=== PATIENT | female | born 1985 | race Caucasian/White ===

== ENCOUNTER 2018-07-28 14:05 | Outpatient (CLI) | END 2018-07-28 15:45 | disposition home or self-care (01) ==

== ENCOUNTER 2018-10-15 08:33 | Outpatient (CLI) | payer MEDICAID ==
[~2018-10-15] VITALS: Ht 165.1 cm; Wt 109.9 kg
[~2018-10-15 08:33] MED LIST: FER325 PO; NITR-58 PO; PREN-93 PO
[2018-10-15 08:41] VITALS: Ht 165.1 cm; Wt 109.9 kg
--- NOTE | 2018-10-15 16:55 | PN ---
Triage Information Date/Time October 15, 2018 Reason for visit: Patient here for rule out macrosomia Weeks of Gestation 38 weeks and 5 days /Para 3 para 2 Diabetes: none Hypertention: none Additional information 33-year-old with IUP at 38 weeks and 5 days was sent by her primary OB to triage for ultrasound due to suspected macrosomia as well as testing. Patient denies any history of gestational diabetes with pre-gestational diabetes. Denies any leaking of fluid, vaginal bleeding decreased movement or any other complaints. Objective Vitals are stable Heart Rate: 130's Heart Rate Comments Category 1 and reassuring Contractions: None Exam General appearance: Alert and oriented x4 does not appear to be in any acute distress. Obese Abdomen: Soft, gravid, fundal height consider gestational age NST: Category 1 EFW: 7 7.6 percentile BPP: 8/8 MARIANNA: 9.6 Results/Medications Imaging Results PROCEDURE: US OB biophysical profile. CLINICAL INDICATION: decreased movements, TECHNIQUE: Multiple sonographic images of the pelvis were obtained. The images were reviewed on a PACS workstation. COMPARISON: No prior studies are available for comparison. FINDINGS: There is a single live intrauterine gestation. Cardiac activity is present with 126 beats per minute. There is a vertex presentation. The placenta is anterior. There is no evidence of placental abruption. There is a normal amount of amniotic fluid with an MARIANNA = 9.6 cm. Biophysical profile: movement 2/2 tone 2/2. breathing 2/2 MARIANNA 2/2 Total 8 RPTAT: AA . IMPRESSION: Normal biophysical profile. . Disposition: Discharge Assessment/Plan IUP at 38 weeks and 5 days No evidence of macrosomia Doing well testing reassuring Labor precaution kick count and follow-up with primary OB office within 48 hours after discharge from the hospital discussed with the patient Patient verbalized understanding. All questions were answered to patient's best satisfaction CHACORTA RODRIGUEZ MD Oct 15, 2018 16:55
--- NOTE | 2018-10-15 18:02 | TRIAGE ---
OB Triage Datetime Report Generated by CPN: 10/15/2018 18:02 Datetime: 10/15/2018 10:00 Stage of : OB Triage Maternal Assessment Level of Consciousness: Fully Conscious DTR's/Clonus: DTRs 1+ Headache: Denies Breath Sounds, Left: Clear and Equal Breath Sounds, Right: Clear and Equal Nausea/Vomiting: Denies RUQ Epigastric Pain: Denies Monitor Mode: External Resting Tone [place]: Relaxed Heart Rate FHR Baseline Rate: 125 Monitor Mode: External US Variability: Moderate 6-25 bpm Accelerations: 15X15 Decelerations: None Category: Category I Pain Assessment Pain Scale: 0 Pain Presence: None/Denies Pain Type: N/A Pain Goal: 3 Vaginal Exam Membrane Status: Intact Datetime: 10/15/2018 09:04 Stage of : OB Triage Maternal Assessment Level of Consciousness: Fully Conscious DTR's/Clonus: DTRs 1+ Headache: Denies Blurred Vision: No Respiratory Effort: Unlabored Breath Sounds, Left: Clear and Equal Breath Sounds, Right: Clear and Equal Nausea/Vomiting: Denies RUQ Epigastric Pain: Denies Facial Edema: None Labor Evaluation Frequency: X1 Monitor Mode: External Duration (sec)2399: 60 Quality: Mild Pattern: Normal: <= 5 Contractions in 10 Minutes Resting Tone [place]: Relaxed Heart Rate FHR Baseline Rate: 125 Monitor Mode: External US Variability: Moderate 6-25 bpm Accelerations: 15X15 Decelerations: None Category: Category I Pain Assessment Pain Scale: 0 Pain Presence: None/Denies Pain Type: N/A Pain Goal: 3 Vaginal Exam Membrane Status: Intact Datetime: 10/15/2018 08:35 Assessment Type: Triage Maternal Assessment Level of Consciousness: Fully Conscious DTR's/Clonus: DTRs 2+; No Clonus Headache: Denies Blurred Vision: No Respiratory Effort: Unlabored; Regular Rhythm; Equal Expansion Breath Sounds, Left: Clear and Equal Breath Sounds, Right: Clear and Equal Nausea/Vomiting: Denies RUQ Epigastric Pain: Denies Lower Extremities Edema: None Degree: None Upper Extremities Edema: None Degree: None Facial Edema: None Fall Risk Assessment History of Falling: (0) No Secondary Diagnosis: (0) No Ambulatory Aid: (0) Bedrest/Nurse Assist IV Therapy: (0) No Gait: (0) Normal/Bedrest/Immobile Mental Status: (0) Oriented to Own Ability Fall Score: 0 Fall Risk Score Definition: No Risk: No action required Datetime: 10/15/2018 08:24 Time of Arrival: 10/15/2018 08:24 EGA: 38.5 Arrived By: Ambulatory Arrived From: Office Chief Complaint: PT CAME IN FROM [facility] OFFICE TO R/O MACRO Movement: Present Contractions: Denies/Absent Rupture of Membranes: Denies Vaginal Discharge: Denies Recent Sexual Intercouse: Denies Abdominal Trauma: Not Applicable Patient Complaints: Other Additional Patient Complaints: NONE Time Provider Notified: 10/15/2018 08:42 Provider Notified: HADADIAN Initial Plan: NST, BPP AND EFW Datetime: 07/28/2018 14:18 Fall Score: 0 Fall Risk Score Definition: No Risk: No action required Datetime: 07/28/2018 14:17 EGA: 27.3
== END 2018-10-15 10:15 | disposition home or self-care (01) ==
LOC: OBT 08:33 → L-D 08:34 → OBT 10:15
PROVIDERS: ATTEND Obstetrics & Gynecology
DX: O36.63X0 Maternal care for excessive fetal growth, third trimester, not applicable or unspecified (principal); Z3A.38 38 weeks gestation of pregnancy
CPT/HCPCS: 76815; 76818; Z7500; G0463

== ENCOUNTER 2018-10-25 08:46 | Outpatient (CLI) | payer MEDICAID ==
[~2018-10-25] VITALS: Ht 165.1 cm; Wt 108.8 kg
[2018-10-25 09:04] VITALS: Ht 165.1 cm; Wt 108.8 kg
--- NOTE | 2018-10-25 12:16 | PN ---
Triage Information Date/Time Reason for visit: Antepartum testing Weeks of Gestation 40 weeks and 1 day /Para 003 Diabetes: none Hypertention: none Objective Heart Rate: 140's Contractions: None Results/Medications Imaging Results FINDINGS: There is a single viable intrauterine gestation. There is a vertex presentation. Cardiac activity is present at 136 beats per minute. The placenta is anterior grade II. The results of the biophysical profile are as follows: breathing movement = 2/2 Gross body movement = 2/2 tone = 2/2 Qualitative amniotic fluid volume = 2/2 Amniotic fluid index equals 8.5 cm. This yields a biophysical profile score of 8/8. IMPRESSION: Biophysical profile score is 8/8. Disposition: Discharge Assessment/Plan 33 years old G with single intrauterine at 40 weeks and 1 day present for antepartum testing. - FHR: No sign of metabolic acidosis- Category I - Contractions: None - Ultrasound performed as noted above, normal MARIANNA biophysical profile 8 out of 8 - SVE performed/closed/thick/high/cephalic/intact membrane. Repeat exam in 2 hours with no cervical changes. - Symptoms and sign of labor, preeclampsia, kick count discussed with patient, she voiced understanding. All of her questions answered. - Patient was discharged home in stable condition with the appropriate discharge instructions provided, antepartum testing is normal and the cervical exam is unfavorable I would like patient to have close follow-up with her primary physician or outpatient clinic in 1-2 days. She has been scheduled for induction of labor on 04/30/2019 SHERRILL OBRIEN Oct 25, 2018 12:16
== END 2018-10-25 11:40 | disposition home or self-care (01) ==
LOC: OBT 08:46 → L-D 08:47 → OBT 11:40
PROVIDERS: ATTEND Obstetrics & Gynecology
DX: O48.0 Post-term pregnancy (principal); Z3A.40 40 weeks gestation of pregnancy
CPT/HCPCS: 76818; Z7500; G0463

== ENCOUNTER 2018-10-25 19:26 | Inpatient (IN) | payer MEDICAID ==
[~2018-10-25] VITALS: Ht 165.1 cm; Wt 109.8 kg
[2018-10-25 19:33] VITALS: BP 129/76; PULSE 78; RESP 16; Ht 165.1 cm; Wt 109.8 kg
[2018-10-25] MEDS ORDERED: LACTATED RINGER'S 1,000 ML IV SCH (21:15)
[2018-10-25] MEDS ORDERED: LACTATED RINGER'S 1,000 ML IV PRN (21:15)
[2018-10-25] MEDS ORDERED: CARBOPROST 250 MCG INJ IM PRN (21:30)
[2018-10-25] MEDS ORDERED: OXYTOCIN 30 UNITS/LR 500 ML IV SCH ×2 (21:30)
[2018-10-25] MEDS ORDERED: OXYTOCIN 30 UNITS/LR 500 ML IV PRN (21:30)
[2018-10-25] MEDS ORDERED: METHYLERGONOVINE 0.2 MG INJ IM PRN (21:30)
[2018-10-25] MEDS ORDERED: BUTORPHANOL 2 MG INJ IV PRN (21:30)
[2018-10-25] MEDS ORDERED: IBUPROFEN 600 MG TAB PO PRN (21:30)
[2018-10-25] MEDS ORDERED: LIDOCAINE 1% (MPF) 30 ML INJ INJ PRN (21:30)
[2018-10-25] MEDS ORDERED: MISOPROSTOL 200 MCG TAB PR PRN (21:30)
[2018-10-25] MEDS ORDERED: BUTORPHANOL 1 MG INJ IV PRN (21:30)
--- NOTE | 2018-10-25 22:06 | TRIAGE ---
OB Triage Datetime Report Generated by CPN: 10/25/2018 22:05 Datetime: 10/25/2018 21:44 Stage of : Labor Assessment Type: Admission Assessment Vaginal Bleeding: None Maternal Assessment Level of Consciousness: Fully Conscious DTR's/Clonus: DTRs 2+; No Clonus Headache: Denies Blurred Vision: No Respiratory Effort: Unlabored; Regular Rhythm; Equal Expansion Breath Sounds, Left: Clear and Equal Breath Sounds, Right: Clear and Equal Nausea/Vomiting: Denies RUQ Epigastric Pain: Denies Lower Extremities Edema: None Degree: None Upper Extremities Edema: None Degree: None Facial Edema: None Fall Risk Assessment History of Falling: (0) No Secondary Diagnosis: (0) No Ambulatory Aid: (0) Bedrest/Nurse Assist IV Therapy: (20) Yes Gait: (0) Normal/Bedrest/Immobile Mental Status: (0) Oriented to Own Ability Fall Score: 20 Fall Risk Score Definition: No Risk: No action required Labor Evaluation Frequency: 2-3.5 Duration (sec)2399: 60-90 Quality: Moderate Pattern: Normal: <= 5 Contractions in 10 Minutes Resting Tone [place]: Relaxed Heart Rate FHR Baseline Rate: 135 Variability: Moderate 6-25 bpm Accelerations: 15X15 Decelerations: None Category: Category I Pain Assessment Pain Scale: 5 Pain Presence: Intermittent Pain Type: Contraction Pain Location: Abdomen Pain Goal: 5 Membrane Status: Intact Datetime: 10/25/2018 21:35 Stage of : Labor Comments: Monitor on, pt in FBC4 Datetime: 10/25/2018 21:20 Comments: monitors off, pt to FBC4 via wheelchair accompanied by RN Datetime: 10/25/2018 21:11 Vaginal Exam Dilatation (cms): 6.0 Effacement (%): 70 Station: -3 Exam By: Cervix, Position: Posterior Datetime: 10/25/2018 21:10 Labor Evaluation Frequency: 4-6 Monitor Mode: External Duration (sec)2399: 50-70 Quality: Mild Pattern: Normal: <= 5 Contractions in 10 Minutes Resting Tone [place]: Relaxed Interventions: Side to Side; Provider Notified Heart Rate FHR Baseline Rate: 150 Monitor Mode: External US Variability: Moderate 6-25 bpm Accelerations: 15X15 Decelerations: Late; Variable Category: Category II Pain Assessment Pain Scale: 5 Pain Presence: Intermittent Pain Type: Contraction Pain Location: Abdomen Pain Relief Measures: Comfort Measures Datetime: 10/25/2018 20:56 Monitor Mode: External US Datetime: 10/25/2018 20:55 Monitor Mode: External US Comments: Monitor loss of contact d/t maternal BMI, positioning, _ lots of movement Datetime: 10/25/2018 20:48 Monitor Mode: External Monitor Mode: External US Comments: monitor loss of contact d/t pt repositioning Datetime: 10/25/2018 20:29 Labor Evaluation Frequency: 5-11 Monitor Mode: External Duration (sec)2399: 50-90 Quality: Mild Pattern: Normal: <= 5 Contractions in 10 Minutes Resting Tone [place]: Relaxed Contraction Comments: some uterine irritability noted Heart Rate FHR Baseline Rate: 140 Monitor Mode: External US Variability: Moderate 6-25 bpm Accelerations: 15X15 Decelerations: None Category: Category I Pain Assessment Pain Scale: 4 Pain Presence: Intermittent Pain Type: Contraction Pain Location: Abdomen Pain Relief Measures: Comfort Measures Datetime: 10/25/2018 20:22 Monitor Mode: External US Datetime: 10/25/2018 20:08 Time of Arrival: 10/25/2018 19:20 EGA: 40.1 Arrived By: Ambulatory Arrived From: Home Chief Complaint: UC's/spotting since 1500 Movement: Present Contractions: Occasional Time Contractions Began: 10/25/2018 15:00 Rupture of Membranes: Denies Vaginal Bleeding: Normal Show Vaginal Discharge: Denies Recent Sexual Intercouse: Denies Abdominal Trauma: Not Applicable Patient Complaints: Contractions; Other Time Provider Notified: 10/25/2018 20:16 Provider Notified: Initial Plan: VS, EFM, SVE Datetime: 10/25/2018 19:54 Vaginal Exam Dilatation (cms): 0.0 Effacement (%): 30 Station: -3 Exam By: BLANCA SIMEON Membrane Status: Intact Vaginal Bleeding: Normal Show Cervix, Consistency: Moderate Cervix, Position: Posterior Datetime: 10/25/2018 19:33 Maternal Assessment Level of Consciousness: Fully Conscious DTR's/Clonus: DTRs 2+; No Clonus Headache: Denies Blurred Vision: No Respiratory Effort: Unlabored; Regular Rhythm; Equal Expansion Breath Sounds, Left: Clear and Equal Breath Sounds, Right: Clear and Equal Nausea/Vomiting: Denies RUQ Epigastric Pain: Denies Lower Extremities Edema: None Degree: None Upper Extremities Edema: None Degree: None Facial Edema: None Temperature Route: Oral Fall Risk Assessment History of Falling: (0) No Secondary Diagnosis: (0) No Ambulatory Aid: (0) Bedrest/Nurse Assist IV Therapy: (0) No Gait: (0) Normal/Bedrest/Immobile Mental Status: (0) Oriented to Own Ability Fall Score: 0 Fall Risk Score Definition: No Risk: No action required Pain Assessment Pain Scale: 3 Pain Presence: Intermittent Pain Type: Contraction Pain Location: Abdomen Pain Relief Measures: Comfort Measures Datetime: 10/25/2018 19:30 Monitor Mode: External Monitor Mode: External US Comments: monitor applied, FHT audible at 145bpm Datetime: 10/25/2018 19:27 Stage of : OB Triage Datetime: 10/25/2018 09:56 Maternal Assessment Level of Consciousness: Fully Conscious DTR's/Clonus: DTRs 1+ Headache: Denies Blurred Vision: No Respiratory Effort: Unlabored Breath Sounds, Left: Clear and Equal Breath Sounds, Right: Clear and Equal Nausea/Vomiting: Denies RUQ Epigastric Pain: Denies Facial Edema: None Labor Evaluation Frequency: IRREGULAR Monitor Mode: External Duration (sec)2399: 40-60 Quality: Mild Pattern: Normal: <= 5 Contractions in 10 Minutes Resting Tone [place]: Relaxed Heart Rate FHR Baseline Rate: 125 Monitor Mode: External US Variability: Moderate 6-25 bpm Accelerations: 15X15 Decelerations: None Category: Category I Pain Assessment Pain Scale: 0 Pain Presence: None/Denies Pain Type: N/A Pain Goal: 3 Membrane Status: Intact Datetime: 10/25/2018 09:00 Stage of : OB Triage Maternal Assessment Level of Consciousness: Fully Conscious DTR's/Clonus: DTRs 1+ Headache: Denies Breath Sounds, Left: Clear and Equal Breath Sounds, Right: Clear and Equal Nausea/Vomiting: Denies RUQ Epigastric Pain: Denies Labor Evaluation Frequency: IRREGULAR Monitor Mode: External Duration (sec)2399: 40-60 Quality: Mild Pattern: Normal: <= 5 Contractions in 10 Minutes Resting Tone [place]: Relaxed Heart Rate FHR Baseline Rate: 135 Monitor Mode: External US Variability: Moderate 6-25 bpm Accelerations: 15X15 Decelerations: None Category: Category I Pain Assessment Pain Scale: 0 Pain Presence: None/Denies Pain Type: N/A Pain Goal: 3 Membrane Status: Intact Datetime: 10/25/2018 08:52 Vaginal Exam Dilatation (cms): 0.0 Effacement (%): 0 Station: -3 Exam By: RRAMIJERICA,RN Vaginal Bleeding: None Cervix, Consistency: Soft Cervix, Position: Posterior Datetime: 10/25/2018 08:49 Assessment Type: Triage Maternal Assessment Level of Consciousness: Fully Conscious DTR's/Clonus: DTRs 2+; No Clonus Headache: Denies Blurred Vision: No Respiratory Effort: Unlabored; Regular Rhythm; Equal Expansion Breath Sounds, Left: Clear and Equal Breath Sounds, Right: Clear and Equal Nausea/Vomiting: Denies RUQ Epigastric Pain: Denies Lower Extremities Edema: None Degree: None Upper Extremities Edema: None Degree: None Facial Edema: None Fall Risk Assessment History of Falling: (0) No Secondary Diagnosis: (0) No Ambulatory Aid: (0) Bedrest/Nurse Assist IV Therapy: (0) No Gait: (0) Normal/Bedrest/Immobile Mental Status: (0) Oriented to Own Ability Fall Score: 0 Fall Risk Score Definition: No Risk: No action required Datetime: 10/25/2018 08:42 Time of Arrival: 10/25/2018 08:42 EGA: 40.1 Arrived By: Ambulatory Arrived From: Dr. Alston Chief Complaint: NST AND BPP FOR POSTDATES 40 08/24 Movement: Present Contractions: Denies/Absent Rupture of Membranes: Denies Vaginal Discharge: Denies Recent Sexual Intercouse: Denies Abdominal Trauma: Not Applicable Additional Patient Complaints: NONE Time Provider Notified: 10/25/2018 08:49 Provider Notified: HADADIAN Initial Plan: NST AND BPP Datetime: 10/15/2018 08:35 Fall Score: 0 Fall Risk Score Definition: No Risk: No action required Datetime: 10/15/2018 08:24 EGA: 38.5 Datetime: 07/28/2018 14:18 Fall Score: 0 Fall Risk Score Definition: No Risk: No action required Datetime: 07/28/2018 14:17 EGA: 27.3
--- NOTE | 2018-10-26 00:12 | LDN ---
Date/Time of Note Date/Time of Note DATE: 10/26/18 TIME: 00:10 Delivery Summary of a viable baby boy weighing 3880 grams or 8# 9 oz, 20" long, and with Apgars of 8/9. Weeks of Gestation 40w 1d Placenta Delivered: Spontaneously Meconium: Light Episiotomy: No Perineal laceration: 1 Laceration repair: Very small perineal laceration repaired with one stitch of 2-0 chromic for hemostasis. Anesthesia type: None Estimated blood loss: 200 Sponge & Needle done & correct: Yes All needle counts correct: Yes Any foreign bodies felt in the: No (vagina) Delivery Information Sex Infant Sex: male Apgars 1 Minute: 8 5 Minute: 9 Suctioning Nose & mouth suctioned at lucero: Yes Delee suction performed: No Umbilical Cord Umbilical cord with: 3 Vessels Cord presentations: no nuchal cord Cord Blood was obtained: Yes Mother & Baby Disposition Disposition Mom & Baby to Maternity; Good: Yes Baby to NICU: No NADEGE MAGAÑA MD Oct 26, 2018 00:12
--- NOTE | 2018-10-26 00:16 | HP ---
Date/Time of Note Date/Time of Note DATE: 10/26/18 TIME: 00:12 OB - History Hx of Present Free Text/Dictation 33 y.o. with an IUP at 40w 1d came in active labor with a cervical exam of 70%/6 cm/-3 station and was admitted for delivery. Chief Complaint: Labor Estimated Due Date: Oct 24, 2018 : 3 Para: 2 Care: Good Care Ultrasounds: Normal mid trimester US Obstetrical Complications: None Medical Complications: None Past Family/Social History * Past Medical, Surgical, Family and Obstetric Histories reviewed from chart. Blood Type: O+ Rubella: immune RPR/VDRL: Negative GBS Status: Negative HBsAG: Negative OB Admission Exam Vital Signs Vital Signs Vital Signs Date Temp Pulse Resp B/P (MAP) Pulse Ox O2 O2 Flow FiO2 Time Delivery Rate 10/25/18 98.1 78 16 129/76 Room Air 19:33 (93) Physical Exam HEENT: WNL Heart: Rhythm Normal Lungs: Clear Abdomen: WNL (obese) Extremities: Normal Reflexes: Normal Cervical Dilatation: 6cm Effacement: 75% Station: -3 Membranes: Intact Amniotic Fluid: Thin Meconium Heart Rate: 130's Accelerations: Accelerations Present Decelerations: Variable Decelerations (occasional) Varibility: Moderate Contractions on Admission: < 5 Minutes Apart Intensity: Moderate Last 72 hours Lab Results CBC & BMP 10/25/18 21:35 OB Assessment/Plan Reason for admission: active labor Plan: Expectant Management NADEGE MAGAÑA MD Oct 26, 2018 00:16
[2018-10-26] MEDS: LACTATED RINGER'S 1,000 ML IV* SCH ×3 (00:17→16:17)
--- NOTE | 2018-10-26 00:27 | DELSUM ---
Delivery Summary A-C Datetime Report Generated by CPN: 10/26/2018 00:27 DELIVERY PERSONNEL Fibreglass Laminator: Witt, Sirena MATERNAL INFORMATION Delivery Anesthesia: None Medications in Delivery: 30 UNIT PITOCIN Delivery QBL (ml): 300 Placenta Cultured: No Maternal Complications: None LABOR SUMMARY EDC: 10/24/2018 00:00 No. Babies in Womb: 1 Attempted: No Labor Anesthesia: None LABOR INFORMATION Reason for Induction: Not Applicable Onset of Labor: 10/25/2018 15:00 Complete Dilatation: 10/25/2018 23:50 Oxytocin: N/A Group B Beta Strep: Negative Antibiotics # of Doses: 0 Steroids Given: None Reason Steroids Not Administered: Not Applicable MEMBRANES Membranes Rupture Method: Artificial Rupture of Membranes: 10/25/2018 22:56 Length of Rupture (hr): 0.93 Amniotic Fluid Color: Light Meconium Amniotic Fluid Amount: Small STAGES OF LABOR Stage 1 hr: 8 Stage 1 min: 50 Stage 2 hr: 0 Stage 2 min: 2 Stage 3 hr: 0 Stage 3 min: 6 Total Time in Labor hr: 8 Total Time in Labor min: 58 VAGINAL DELIVERY Episiotomy: None Laceration Extension: First Degree Laceration Type: Perineal Laceration Repair: Yes Initial Vag Sponge Count: 10 Final Vag Sponge Count: 10 Initial Vag Sharps Count: 1 Final Vag Sharps Count: 2 Sponge Count Correct: Yes; Vaginal Sweep Performed Sharps Count Correct: Yes BABY A INFORMATION Infant Delivery Date/Time: 10/25/2018 23:52 Method of Delivery: Vaginal Method of Delivery: Vaginal Born in Route : No : N/A Forceps: N/A Vacuum Extraction: N/A Shoulder Dystocia : N/A SHOULDER DYSTOCIA BABY A Infant Delivery Date/Time: 10/25/2018 23:52 PRESENTATION/POSITION BABY A Presentation: Cephalic Cephalic Presentation: Vertex Breech Presentation: N/A PLACENTA INFORMATION BABY A Placenta Delivery Time : 10/25/2018 23:58 Placenta Method of Delivery: Spontaneous Placenta Status: Delivered SCORES BABY A Heart Rate 1 min: >100 bpm Resp Effort 1 min: Good Cry Reflex Irritability 1 min: Cough/Sneeze/Pulls Away Muscle Tone 1 min: Active Motion Color 1 min: Blue/Pale Resuscitation Effort 1 min: Tactile Stimulation SCORE 1 MIN: 8 Heart Rate 5 min: >100 bpm Resp Effort 5 min: Good Cry Reflex Irritability 5 min: Cough/Sneeze/Pulls Away Muscle Tone 5 min: Active Motion Color 5 min: Body [place], Extremit Blue Resuscitation Effort 5 min: Tactile Stimulation SCORE 5 MIN: 9 INFANT INFORMATION BABY A Gestational Age at Delivery: 40.1 Gestational Status: Full Term- 39- 40.6 Weeks Infant Outcome : Liveborn Condition : Stable Infant Sex: Male Sex: Male IDENTIFICATION/MEDS BABY A ID Band Number: [id number] ID Band Location: Right Leg; Left Arm Sensor Applied: Yes Sensor Number: [id number] Sensor Location : Cord Clamp Vitamin K Given : Not Given Erythromycin Given: Not Given WEIGHT/LENGTH BABY A Infant Birthweight (gm): 3880 Weight (lb): 8 Weight (oz): 9 Length (in): 20.00 Length (cm): 50.80 CORD INFORMATION BABY A No. Cord Vessels: 3 Nuchal Cord : N/A Cord Blood Taken: Yes Banking/Donate Info: none Suction: Mouth; Nose ASSESSMENT BABY A Infant Complications: Meconium Physical Findings at Delivery: Within Normal Limits Infant Respirations: Appears Normal Cuff Turner/ALS Called : No Care By: Genoveva PAREDES Transferred To: Remains with Mother
[2018-10-26] MEDS ORDERED: HYDROCODONE/APAP (5/325) TAB PO PRN (00:30)
[2018-10-26] MEDS ORDERED: CARBOPROST 250 MCG INJ IM PRN (00:30)
[2018-10-26] MEDS ORDERED: LANOLIN HPA 1 PKT TOP PRN (00:30)
[2018-10-26] MEDS ORDERED: METHYLERGONOVINE 0.2 MG INJ IM PRN (00:30)
[2018-10-26] MEDS ORDERED: MISOPROSTOL 200 MCG TAB PR PRN (00:30)
[2018-10-26] MEDS ORDERED: OXYTOCIN 30 UNITS/LR 500 ML IV PRN (00:30)
[2018-10-26 01:30] VITALS: BP 132/80; PULSE 69; RESP 19
[2018-10-26 03:20] VITALS: BP 131/82; PULSE 74; RESP 20
[2018-10-26] MEDS: OXYTOCIN 30 UNITS/LR 500 ML IV SCH ×3 (04:14→15:39)
[2018-10-26] MEDS: IBUPROFEN 600 MG TAB PO SCH ×4 (06:15→23:51)
[2018-10-26 07:30] VITALS: BP 136/86; PULSE 71; RESP 16
[2018-10-26 12:15] VITALS: BP 132/84; PULSE 74; RESP 18
[2018-10-26 16:32] VITALS: BP 123/58; PULSE 76; RESP 18
[2018-10-26 19:20] VITALS: BP 126/73; PULSE 82; RESP 18
--- NOTE | 2018-10-26 23:11 | PN ---
Date/Time of Note Date/Time of Note DATE: 10/26/18 TIME: 23:07 OB Subjective Subjective Subjective PPD# 1 Patient is doing well. She denies nausea, vomiting, shortness of breath, chest pain, headache. She has been ambulating without difficulty, tolerating regular diet. Pain is well controlled on current medications OB Objective Objective Objective Vital Signs Date Temp Pulse Resp B/P (MAP) Pulse Ox O2 O2 Flow FiO2 Time Delivery Rate 10/26/18 98.1 82 18 126/73 Room Air 19:20 (90) General: AAO X 3, comfortable, NAD, appropriate mood and affect. ABD: +BS. Soft, non-tender. Uterus 2 cm below umbilicus Flank: No CVA tenderness (B/L) LE: Mild edema. No clubbing, cyanosis, thigh or calf tenderness (B/L). Homans 'sign is negative Laboratory Tests Test 10/25/18 21:35 White Blood Count 11.4 10^3/ul Red Blood Count 4.46 10^6/ul Hemoglobin 12.6 g/dl Hematocrit 38.0 % Mean Corpuscular Volume 85.2 fl Mean Corpuscular Hemoglobin 28.3 pg Mean Corpuscular Hemoglobin Concent 33.2 g/dl Red Cell Distribution Width 13.4 % Platelet Count 274 10^3/UL Mean Platelet Volume 10.3 fl Immature Granulocytes % 0.800 % Neutrophils % 70.6 % Lymphocytes % 21.1 % Monocytes % 6.7 % Eosinophils % 0.5 % Basophils % 0.3 % Nucleated Red Blood Cells % 0.0 /100WBC Immature Granulocytes # 0.090 10^3/ul Neutrophils # 8.1 10^3/ul Lymphocytes # 2.4 10^3/ul Monocytes # 0.8 10^3/ul Eosinophils # 0.1 10^3/ul Basophils # 0.0 10^3/ul Nucleated Red Blood Cells # 0.0 10^3/ul Prothrombin Time 10.9 Sec Prothrombin Time Ratio 0.9 INR International Normalized Ratio 0.77 Activated Partial Thromboplast Time 22.8 Sec Rapid Plasma Reagin NONREACTIVE OB Assessment/Plan Other plan: 33-year-old s/p normal vaginal delivery at 40 weeks and 1 day. PPD#1 - AF, VSS - Baby is doing well, at bed side. She is bonding well - Contraception methods with R/B/A/FR discussed - Continue care - Discharge home tomorrow - Rx and instruction given - Follow up in 2 and 6 weeks at clinic SHERRILL OBRIEN Oct 26, 2018 23:11
[2018-10-27] MEDS: LACTATED RINGER'S 1,000 ML IV* SCH (00:17)
--- NOTE | 2018-10-27 00:27 | DS ---
Date/Time of Note Date/Time of Note DATE: 10/27/18 TIME: 00:26 Obstetrical Discharge Record Final Diagnosis Final Diagnosis: Term delivered Other Final Diagnosis 33-year-old s/p normal vaginal delivery at 40 weeks and 1 day. PPD#2. Her course was unremarkable. She is ambulating and tolerating regular diet. She is voiding without difficulty. Pain is controlled on current medication. - AF, VSS - Baby is doing well, at bed side. She is bonding well - Contraception methods with R/B/A/FR discussed - Continue care - Discharge home - Rx and instruction given - Follow up in 2 and 6 weeks at clinic Vaginal Delivery Obstetrical Delivery: Spontaneous Condition on Discharge Physical Assessment Last Vitals: v Vital Signs Date Temp Pulse Resp B/P (MAP) Pulse Ox O2 O2 Flow FiO2 Time Delivery Rate 10/26/18 98.1 82 18 126/73 Room Air 19:20 (90) Voiding: Yes Bowel Movement: Yes Fundus: Firm Calf Tenderness: No Patient Condition: Stable SHERRILL OBRIEN Oct 27, 2018 00:27
[2018-10-27 03:40] VITALS: BP 118/68; PULSE 74; RESP 18
[2018-10-27] MEDS: IBUPROFEN 600 MG TAB PO SCH ×2 (05:43→12:02)
[2018-10-27 08:00] VITALS: BP 116/76; PULSE 73; RESP 18
[2018-10-27 08:30] VITALS: BP 116/76; PULSE 73; RESP 18
[2018-10-27 10:35] VITALS: PULSE 73
[2018-10-27] MEDS ORDERED: DIPHTH/TET/ACEL PERTUSS (ADULT) 0.5 ML VIAL IM* ONE (14:00)
--- NOTE | 2018-10-27 15:37 | QN ---
Documentation Comment PPD#1 is table afebrile tolerates diet No VB +BM Voids No sign of Depression VS stable Gen NAD Abd soft NT ND Genitalia No blood at perineum --->Discharge plan tomorrow JAIR WALSH M.D. Oct 27, 2018 15:37
[2018-10-28] MEDS ORDERED: DIPHTH/TET/ACEL PERTUSS (ADULT) 0.5 ML VIAL IM* ONE (09:00)
[2018-10-28] MEDS ORDERED: INFLUENZA VIRUS VACCINE 0.5 ML (DISPENSING) IM* ONE (10:00)
== END 2018-10-27 15:20 | disposition home or self-care (01) | DRG 807 ==
LOC: OBT 19:26 → L-D 19:27 → OBT 21:11 → PP1 10-26 01:18
PROVIDERS: ADMIT Obstetrics & Gynecology; ATTEND Obstetrics & Gynecology
PROC: 10E0XZZ Delivery of Products of Conception, External Approach (ICD-10-PCS; principal; 2018-10-26)
PROC: 0HQ9XZZ Repair Perineum Skin, External Approach (ICD-10-PCS; 2018-10-26)
DX: O77.0 Labor and delivery complicated by meconium in amniotic fluid (principal); Z37.0 Single live birth; O76 Abnormality in fetal heart rate and rhythm complicating labor and delivery; O99.214 Obesity complicating childbirth; E66.9 Obesity, unspecified; O70.9 Perineal laceration during delivery, unspecified; Z3A.40 40 weeks gestation of pregnancy; Z23 Encounter for immunization
CPT/HCPCS: 85025; 85610; 85730; 86592; 86850; 86900; 86901; 90686; 90715; 99464; G0463; J2590; J7120